=== PATIENT | female | born 1960 | race Caucasian/White ===

== ENCOUNTER → 2021-10-14 16:57 | Outpatient (CLI) | payer OTHER, SELFPAY | PROVIDERS: Visit Provider Nurse Practitioner | DX: Z20.822 Contact with and (suspected) exposure to COVID-19 (principal) | CPT/HCPCS: C9803; U0003; U0005 ==

== ENCOUNTER → 2021-10-22 16:44 | Outpatient (CLI) | payer OTHER, SELFPAY ==
--- NOTE | 2021-10-22 16:50 | MM_ITS ---
PROCEDURE INFORMATION: Exam: MG Bilateral Screening 3D Mammography Exam date and time: 10/22/2021 4:50 PM Age: 61 years old Clinical indication: Encounter for screening mammogram for malignant neoplasm of breast TECHNIQUE: Imaging protocol: Bilateral Screening tomosynthesis and 2D mammography including computer-aided detection (CAD) when performed. COMPARISON: No relevant prior studies available. FINDINGS: MAMMOGRAPHY: Breast composition: The breast tissue is composed of scattered areas of fibroglandular density. Mass: None. Architectural distortion: None. Calcifications: No suspicious calcifications. Asymmetric density: None. Skin thickening: None. Axillary adenopathy: None. IMPRESSION: No mammographic evidence of malignancy. Annual screening is recommended unless otherwise clinically indicated. ASSESSMENT: BI-RADS Category 1: Negative
== END ==
PROVIDERS: PCP Family Medicine; Visit Provider Family Medicine
DX: Z12.31 Encounter for screening mammogram for malignant neoplasm of breast (principal)
CPT/HCPCS: 77063; 77067

== ENCOUNTER → 2022-02-04 15:05 | Outpatient (POV) | payer OTHER, SELFPAY | PROVIDERS: Visit Provider Dermatology | DX: Z00.00 Encounter for general adult medical examination without abnormal findings (principal) ==

== ENCOUNTER 2023-03-11 20:52 | Emergency (ER) | payer OTHER, SELFPAY ==
[2023-03-11 21:17] VITALS: BP 150/72; PULSE 92; RESP 16; O2SAT 96; BMI 22.3
--- NOTE | 2023-03-11 21:17 | XR_ITS ---
PROCEDURE INFORMATION: Exam: XR Left Elbow Exam date and time: 03/11/2023 9:23 PM Age: 62 years old Clinical indication: Injury or trauma; Other: Dog bite; Laceration; Elbow; Left TECHNIQUE: Imaging protocol: Radiologic exam of the left elbow. Views: 1 or 2 views. Total images: 2 COMPARISON: No relevant prior studies available. FINDINGS: Bones/joints: No acute fracture, joint dislocation, or joint effusion. No significant degenerative arthropathy. No concerning bone lesions or calcifications. Soft tissues: Large soft tissue laceration. No radiopaque foreign body. IMPRESSION: 1. No acute osseous abnormality. 2. Soft tissue laceration. 3. No radiopaque foreign body.
[2023-03-11 22:00] VITALS: BP 138/60; PULSE 80; O2SAT 97
[2023-03-11 22:30] VITALS: BP 134/60; PULSE 77; O2SAT 96
[2023-03-11 23:37] VITALS: BP 128/65; PULSE 80; RESP 16; TEMP 36.6
--- NOTE | 2023-03-12 03:07 | HMH.EDANIB ---
Discharge Plan Disposition Patient Disposition: Home, Self-Care Condition: Good Prescriptions Prescriptions: New amoxicillin-pot clavulanate [Augmentin] 500-125 mg tablet 1 tab PO TID Qty: 30 0RF ibuprofen 600 mg tablet 600 mg PO Q8H PRN (Reason: fever or pain) Qty: 30 0RF acetaminophen [Tylenol 8 Hour] 650 mg tablet extended release 650 mg PO Q8H PRN (Reason: pain) Qty: 30 0RF Referrals Follow up/Referrals: Hali Ramirez MD [Primary Care Provider] - See instructions Clinical Impressions Clinical Impression: Dog bite, Laceration of elbow without complication Instructions Patient Instructions: Animal Bites Discharge ED Provider: Marley Nair Animal Bite HPI General Chief Complaint: Animal Bite Stated Complaint: AO 03/11 20:30, dog bite to left arm Time Seen by Provider: 03/11/23 21:16 Mode of Arrival: Ambulatory Source of Information: Patient Limitations: No Limitations Description of Symptoms (Recalled from ER Triage Doc. by RN): pt states she was bitten by a blue pallet stone inserter today. pt presents with a canine bite to her L elbow with subcutaneous tissue visualized. pt states she was walking on the side walk when the dog attacked. the belt worker reported to the pt that the canine was up to date on vaccines. History of Present Illness HPI narrative: Patient is 62yo white female who is here for left elbow laceration after dog bite. Patient was walking by one of the neighbors fences dog jumped up and bit her left elbow. Patient did not have any issues with other trauma. complaint: animal bite Onset (ago): hour(s) Animal: dog Description of animal: household pet Mechanism: bite Left: elbow (2 inch laceration) Pain description: dull and constant Severity scale (1-10): 8 Context: unprovoked Associated symptoms: none Related Data Patient tetanus UTD: Yes Previous Rx's Medication Instructions Recorded acetaminophen 650 mg 650 mg PO Q8H PRN pain #30 tabs 03/11/23 tablet,extended release (Tylenol 8 Hour) amoxicillin 500 mg-potassium 1 tab PO TID #30 tabs 03/11/23 clavulanate 125 mg tablet (Augmentin) ibuprofen 600 mg tablet 600 mg PO Q8H PRN fever or pain 03/11/23 #30 tabs Allergies Allergy/AdvReac Type Severity Reaction Status Date / Time No Known Allergies Allergy Verified 03/11/23 21:24 [facility] Disclaimer: The information contained in this section may have been updated after the patient was seen, as this information can be updated by other users. Social History Smoking Status: Never smoker alcohol intake: never current occupational status: employed Travel in the last 8 weeks: Inside the [place] ROS Obtained: Yes All systems reviewed & no additional complaints except as documented Musculoskeletal Musculoskeletal: Reports other (Left elbow laceration) Physical Exam General General appearance: alert and in distress Head Head exam: atraumatic, normocephalic and normal inspection Eye Eye exam: Present normal appearance, PERRL and EOMI; Absent scleral icterus or conjunctival redness ENT ENT exam: Present normal exam, normal oropharynx and mucous membranes moist Neck Neck exam: Present normal inspection, full ROM and trachea midline Chest Chest inspection: Present normal inspection and symmetric chest wall rise Respiratory Respiratory exam: Present normal lung sounds bilaterally Cardiovascular Cardiovascular exam: Present regular rate, normal rhythm, normal heart sounds, +S1 and +S2 Abdominal Exam Abdominal exam: Present soft and normal bowel sounds; Absent distention, tenderness, guarding, rebound or rigidity Extremities Exam Extremities exam: Present full ROM, tenderness (Left elbow 2 inches below the elbow joint has a 2 inch laceration horizontal in nature. Does not extend into the joint and there is skin and subcutaneous laceration) and normal capillary refill; Absent normal inspection, edema, joint swelling,
== END 2023-03-11 23:39 | disposition home or self-care (01) ==
PROVIDERS: Emergency Provider Emergency Medicine; PCP Family Medicine
DX: S51.052A Open bite, left elbow, initial encounter (principal); S51.012A Laceration without foreign body of left elbow, initial encounter; W54.0XXA Bitten by dog, initial encounter; Z23 Encounter for immunization
CPT/HCPCS: 12004; 73070; 90471; 90715; 96372; 99283; 99284

== ENCOUNTER → 2023-05-04 15:00 | Outpatient (CLI) | payer OTHER, SELFPAY ==
--- NOTE | 2023-05-04 15:07 | US_ITS ---
FINAL REPORT CLINICAL HISTORY: ABRASION FOREARM,OPEN BITE OF LT UPPER ARM,BITTEN BY DOG COMPARISON: None FINDINGS: Sonographic images of the left forearm were obtained. There is a 6 mm ovoid hypoechoic focus superficially at the area of interest. This may represent a small fluid collection or localized infection. IMPRESSION: 6 mm ovoid hypoechoic focus in the area of interest may represent small fluid collection or localized infection. Reviewed, Interpreted and Dictated by Dano Almodovar III, MD Transcribed by Alison Larkin Authenticated and [facility]
== END ==
LOC: RAD 15:01
PROVIDERS: PCP Family Medicine; Visit Provider Nurse Practitioner Family
DX: S50.812A Abrasion of left forearm, initial encounter (principal); S41.152D Open bite of left upper arm, subsequent encounter; W54.0XXD Bitten by dog, subsequent encounter
CPT/HCPCS: 76882

== ENCOUNTER → 2023-07-22 09:47 | Outpatient (CLI) | payer MEDICARE, SELFPAY ==
--- NOTE | 2023-07-22 09:51 | MM_ITS ---
PROCEDURE INFORMATION: Exam: MG Bilateral Screening 3D Mammography Exam date and time: 07/22/2023 9:52 AM Age: 63 years old Clinical indication: Screening examination TECHNIQUE: Imaging protocol: Bilateral Screening tomosynthesis and 2D mammography including computer-aided detection (CAD) when performed. COMPARISON: MG MM DIG SCREENING MAMM BI W/CAD 10/22/2021 4:43 PM FINDINGS: MAMMOGRAPHY: Breast composition: There are scattered areas of fibroglandular density. Mass: None. Architectural distortion: None. Calcifications: No suspicious calcifications. Asymmetric density: None. Skin thickening: None. Axillary adenopathy: None. IMPRESSION: No mammographic evidence of malignancy. Annual screening is recommended unless otherwise clinically indicated. ASSESSMENT: BI-RADS Category 1: Negative
== END ==
PROVIDERS: PCP Family Medicine; Visit Provider Family Medicine
DX: Z12.31 Encounter for screening mammogram for malignant neoplasm of breast (principal)
CPT/HCPCS: 77063; 77067

== ENCOUNTER → 2023-08-18 15:06 | Outpatient (POV) | payer MEDICARE, SELFPAY | PROVIDERS: PCP Family Medicine; Visit Provider Dermatology | DX: Z00.00 Encounter for general adult medical examination without abnormal findings (principal) ==

== ENCOUNTER 2023-11-18 11:25 | Day surgery (SDC) | payer MEDICARE, SELFPAY ==
[2023-11-17 12:57] VITALS: BMI 22.4
[2023-11-18] VITALS (7 sets, daily range): BP systolic 92–156; BP diastolic 49–75; PULSE 61–75; RESP 16–17; TEMP 37.2; O2SAT 95–98
[2023-11-18] MEDS: LACTATED RINGERS 1000ML 1,000 ML 25 ML IV (11:49)
--- NOTE | 2023-11-18 12:31 | EXP.ANES.CKL ---
[facility] Disclaimer: The information contained in this section may have been updated after the patient was seen, as this information can be updated by other users. Medical History No significant past medical history Surgical History History of section History of colonoscopy with polypectomy Family History Other Family history of cancer Family history of diabetes mellitus type II Family history of hyperlipidemia Family history of hypertension Social History Smoking Status: Never smoker alcohol intake: never substance use type: denies use current occupational status: retired Travel in the last 8 weeks: Inside the [facility] Anesthesia Checklist Patient Identification Patient Identification: Arm Band and Verbal (Name & ) Structural Data Admitted From: Home Planned Operative Procedure/s: Colonoscopy Consent for Planned Operative Procedure(s) Verified: Yes NPO Status Verified Time NPO: 00:00 Additional verifications Anesthesia Reactions: No Airway Assessment Mallampati Score:: Class II C-Spine Mobility Assessed: Yes TMJ Mobility Assessed: Yes Dentition: Good Dentition Neurological Assessment Level of Consciousness: Awake Hx Seizures: No Numbness or tingling in extremities: No Anesthesia Plan Anesthesia Risk discussed: Yes Anesthesia Plan: Verified ASA Class: II Anesthesia Type: MAC
--- NOTE | 2023-11-18 12:59 | HMH.SCOPE ---
Procedure: Date: 11/18/23 Patient Date of :: 1960 Procedure Performed:: Colonoscopy Indications:: The patient is a 63-year-old who presents for surveillance colonoscopy for a personal history of colon polyps. Performing Provider:: Thaddeus Mathew MD Referring Provider:: Laura Medrano APRN, gastroenterology AC MD James Sedation:: See RN records Procedure:: After placing the patient in the left lateral decubitus position, the colonoscopy was gently inserted into the rectum and under direct visualization advanced to the cecum which was identified by transillumination in the right lower quadrant, identification of the ileocecal valve, appendiceal orifice, and cecal strap. Color, texture, mucosa, and anatomy of the colon were carefully examined with the scope. Findings:: There was a diminutive polyp in the distal sigmoid colon. Polyp was removed with cold forceps. There was diverticulosis scattered throughout the sigmoid colon. The colon was tortuous. Completion of the colonoscopy to the cecum required counter abdominal pressure and scope reduction to advance the pediatric colonoscope to the cecum. Retroflexion view of the distal rectum was normal. Quality the bowel preparation was good Recommendations:: Await pathology result Recommend to repeat colonoscopy in 5 years Complications:: None Estimated blood obtained (mL): 0 Colonoscopy Component Colonoscopy Component Was a colonoscopy performed during today's procedure?: Yes Recommended follow up colonoscopy of at least 10 years?: Yes
== END 2023-11-18 13:35 | disposition home or self-care (01) ==
PROVIDERS: PCP Family Medicine; Visit Provider Internal Medicine
PROC: (CPT 45380; principal; 2023-11-18 12:30)
DX: Z12.11 Encounter for screening for malignant neoplasm of colon (principal); Z86.010 Personal history of colon polyps; K63.5 Polyp of colon
CPT/HCPCS: 45380; 88305

== ENCOUNTER 2024-05-31 14:18 | Outpatient (POV) | payer OTHER, MEDICARE, SELFPAY | END 2024-05-31 23:59 | disposition home or self-care (01) | LOC: SC 14:18 | PROVIDERS: PCP Family Medicine; Visit Provider Dermatology | DX: Z00.00 Encounter for general adult medical examination without abnormal findings (principal) ==

== ENCOUNTER 2024-12-14 13:21 | Outpatient (CLI) | payer MEDICARE, SELFPAY ==
--- NOTE | 2024-12-14 13:24 | MM_ITS ---
PROCEDURE INFORMATION: Exam: MG Bilateral Screening 3D Mammography Exam date and time: 12/14/2024 1:40 PM Age: 64 years old Clinical indication: Screening examination. Her mother had breast cancer. TECHNIQUE: Imaging protocol: Bilateral Screening tomosynthesis and 2D mammography including computer-aided detection (CAD) when performed. COMPARISON: 1. MG MM DIG SCREENING MAMM BI W/CAD 07/22/2023 9:52 AM 2. MG MM DIG SCREENING MAMM BI W/CAD 10/22/2021 4:43 PM FINDINGS: MAMMOGRAPHY: Breast composition: There are scattered areas of fibroglandular density. Mass: No suspicious mass. Architectural distortion: None. Calcifications: No suspicious calcifications. Asymmetric density: None. Skin thickening: None. Axillary adenopathy: None. IMPRESSION: No mammographic evidence of malignancy. Annual screening is recommended unless otherwise clinically indicated. ASSESSMENT: BI-RADS Category 1: Negative.
== END 2024-12-14 23:59 | disposition home or self-care (01) ==
LOC: RAD 13:22
PROVIDERS: PCP Family Medicine; Visit Provider Family Medicine
DX: Z12.31 Encounter for screening mammogram for malignant neoplasm of breast (principal)
CPT/HCPCS: 77063; 77067